=== PATIENT | female | born 1970 | race Caucasian/White ===

== ENCOUNTER 2016-09-24 16:45 | Outpatient (CLI) | payer OTHER | END 2016-09-24 16:46 | disposition home or self-care (01) | DX: N97.9 Female infertility, unspecified (principal) ==

== ENCOUNTER 2016-10-04 15:20 | Outpatient (CLI) | payer OTHER | END 2016-10-04 15:21 | disposition home or self-care (01) | DX: N97.9 Female infertility, unspecified (principal) ==

== ENCOUNTER 2017-02-21 09:33 | Outpatient (CLI) | payer OTHER ==
--- NOTE | 2017-02-21 16:36 | XRAY Report ---
THREE VIEW LEFT FOOT: 02/21/2017 CLINICAL INDICATION: Pain. AP, lateral, oblique views of the left foot demonstrate no evidence of fracture or dislocation. The joint spaces are preserved. No radiopaque foreign body is seen in the soft tissues. IMPRESSION: NORMAL LEFT FOOT. JOB #: [id number] EXT JOB #:[id number]
== END 2017-02-21 09:34 | disposition home or self-care (01) ==
LOC: DI 09:33
PROVIDERS: ATTEND Podiatrist
DX: M79.672 Pain in left foot (principal)